=== PATIENT | female | born 1975 | race Caucasian/White ===

== ENCOUNTER 2020-10-04 09:57 | Day surgery (SDC) | payer OTHER, SELFPAY ==
[2020-09-26 14:12] VITALS: BMI 23.8
--- NOTE | 2020-10-04 10:31 | WPDANESEPPF ---
Anes - Initial Pre Proc Eval Procedure: Operation Date: 10/04/20 11:30 Proposed Procedures p Bilateral Breast Augmentation Mammoplasty - Jl Sullivan MD s Bilateral Breast Mastopexy - Jl Sullivan MD Date/Time: 10/04/20 10:31 Surgeon: Jl Sullivan MD Pre Op Diagnosis: Micromastia and Breast Laxity Patient Data Age: 45 Gender: F Height: 5 ft 2 in Weight: 59 kg Allergies Allergy/AdvReac Type Severity Reaction Status Date / Time sulfamethoxazole Allergy Unknown Rash Verified 10/01/20 14:14 [From ] trimethoprim [From ] Allergy Unknown Rash Verified 10/01/20 14:14 Home Medications Medication Instructions Recorded Confirmed Type multivitamin 1 tablet PO DAILY 08/29/20 09/26/20 History lactobacillus combination no.8 3,000 mmu cells PO DAILY 09/26/20 09/26/20 History [Adult Probiotic] carisoprodol 350 mg tablet 350 mg PO TID PRN #21 tablet 09/28/20 10/01/20 Rx docusate sodium 100 mg capsule 100 mg PO DAILY #14 cap 09/28/20 10/01/20 Rx ondansetron HCl 4 mg tablet 4 mg PO Q8H #28 tablet 09/28/20 10/01/20 Rx oxycodone-acetaminophen 5 mg-325 1 tablet PO Q6H PRN #15 tablet 09/28/20 10/01/20 Rx mg tablet Patient hx anesthesia problems: none Family hx anesthesia problems: none PMFSH Social History Social History Smoking status: Current some day smoker Tobacco type: e-cigarettes/vaping Alcohol intake: current Living arrangements: with family Gender identity (if verbalized by the patient): Female Spiritual care concerns: No Anes - Eval Final PreProcedure Day of Procedure 10/04/20 10:31 Patient weight: normal Heart: regular rate and rhythm Lungs: clear to auscultation Airway: Mallampati scale class II Neurological: alert and oriented Last oral intake: >/= 8 hours ASA classification: II Emergent: no Anesthetic plan: proceed Anesthesia type and monitoring: general LMA and standard monitoring Informed Consent: The patient's anesthetic plan and its attendant risks and benefits were discussed with the patient/family/POA. Questions were solicited and answers provided to the satisfaction of the patient/family/POA.
[2020-10-04] MEDS: SCOPOLAMINE 1.5 MG PATCH TRANSDERM (10:45)
[2020-10-04] MEDS: LACTATED RINGERS 1,000 ML 30 ML IV CONT ×2 (10:50→15:41)
[2020-10-04 10:57] VITALS: BMI 23.6
[2020-10-04 11:00] VITALS: BP 108/62; PULSE 80; RESP 20; TEMP 36.7; O2SAT 100
--- NOTE | 2020-10-04 12:37 | WPDHPUPDATE1 ---
History and Physical Update Update Date/Time: 10/04/20 12:37 History and Physical has been reviewed, including an updated exam of the patient. There are NO changes in the patient's condition. Risks, benefits, and alternatives have been discussed and questions answered. Patient agrees to proceed with procedure.
--- NOTE | 2020-10-04 13:11 | SUR.PREOP ---
Called significant other - Abel to give update on case delay.
[2020-10-04] MEDS: ceFAZolin 2 GM/D5W 50 ML 2 GM/50 ML BAG IVPB (13:16)
[2020-10-04] MEDS: LIDO 1%/EPINEPHRINE 1:100,000 20 ML VIAL 30 ML INFILTRATE (13:50)
--- NOTE | 2020-10-04 15:40 | PM.PROC ---
Procedure Note - Detailed Date of procedure: 10/04/20 Pre-op diagnosis: Micromastia and Breast Laxity Post-op diagnosis: same Procedure performed: Bilateral augmentation mastopexy Description of procedure: She is here today for bilateral breast augmentation mastopexy. Previously and again today the risks, benefits, alternatives were discussed in extensive detail. I wanted her to be very realistic about the risks involved as well as expectations. We discussed aftercare and what to monitor for. Made sure answered all of her questions to her satisfaction today and consent was obtained. Marked in the preoperative holding area with their verification. The patient was taken to the operating room placed supine on the operating table. Anesthesia was provided by anesthesiology. A surgical time-out was taken. We cleansed the skin and 1% lidocaine and 0.25% Marcaine with epinephrine was used anesthetize as a field block. She was prepped and draped in a standard sterile fashion. Tegaderm nipple Nicholson were placed. A 15 blade used to make an incision just superior to the inframammary fold. Dissection was continued until the chest wall as identified. I incised the pectoralis major along its inferior border and completely released the inferior border leaving the medial border intact. I created a subpectoral pocket in the appropriate dimensions based on our preoperative planning for the implant. I then copiously irrigated with saline solution and verified a strict hemostasis. Next the use a triple antibiotic and Betadine containing solution to irrigate the pocket. I washed my gloves with the triple antibiotic and Betadine solution. We washed the implant immediately upon opening it with this solution and only opened it when we needed it. I used implant funnel and no-touch technique. The implant was introduced into the pocket using the funnel. Having verified positioning of the implant this was closed using 2-0 Vicryl. I tailor tacked the breast into position and placed her in a sitting position. Verified our markings. Silvano the nipple-areolar complex based on preoperative markings, intraoperative measurements, and observations which were in full agreement. I marked this at 38 mm. Placed supine. I de-epithelialized a superior pedicle of the nipple-areolar complex. I also de-epithelialized inferior flap to cover under the T junction. I removed a central keel and inferior portion of the breast. Elevated medial and lateral breast flaps just was necessary for tension-free closure. I closed the vertical incision and IMF with 2-0 Vicryl. I placed 3-0 Monocryl around the areola and along the vertical. The was closed with 3-0 strata fix. I then ran a running subcuticular 4-0 tissue glue closure She was awoken taken to the PACU without difficulty. All instrument sponge counts were correct at the end of the case. Fluffs, Stanislaw wrap, and surgical bra were placed. Patient was awoke and taken to PACU without difficulty. All instrument sponge counts were correct at the end of the case. Anesthesia: GLMA Surgeon: Jl Sullivan MD Estimated blood loss (mL): 20 Drains: No Packing: No Pathology: none sent Complications: No immediate complications Condition: stable Disposition: PACU Findings: Superior pedicle Invert T Mastopexy Implants: Bilateral Inspira SoftTouch Silicone Breast Implants Right REF# [id number] SN [id number] Left REF# [id number] SN [id number]
[2020-10-04 15:41] VITALS: BP 131/76; PULSE 92; RESP 18; TEMP 37.1; O2SAT 100
[2020-10-04 15:56] VITALS: BP 130/73; PULSE 95; RESP 21; O2SAT 100
[2020-10-04 16:06] VITALS: BP 134/81; PULSE 103; RESP 19; O2SAT 98
--- NOTE | 2020-10-04 16:12 | WPDANESPN ---
Anes - Prog Note Post-Op Date/Time: 10/04/20 16:12 Cardiovascular status: normal Respiratory status: normal Airway patency: baseline Mental status: baseline Post-Op hydration status: normal Vital Signs: Last Vital Signs Temp 37.1 C 10/04/20 15:41 Pulse 103 H 10/04/20 16:06 Resp 19 10/04/20 16:06 BP 134/81 10/04/20 16:06 Pulse Ox 98 10/04/20 16:06 Pain Score (VAS): 0 I/O: Intake & Output 10/04/20 10/04/20 10/04/20 07:59 15:59 23:59 Intake Total 50 Balance 50 Post-procedural complaints: none Patient Feedback: Patient satisfied with anesthetic care.
[2020-10-04] MEDS: oxyCODONE HCL (*CRX) 5 MG TAB IR PO (16:25)
[2020-10-04 16:26] VITALS: BP 135/80; PULSE 98; RESP 20; O2SAT 98
[2020-10-04 16:52] VITALS: BP 133/71; PULSE 87; RESP 20; O2SAT 99
== END 2020-10-04 17:00 | disposition home or self-care (01) ==
PROVIDERS: Visit Provider Surgery Plastic and Reconstructive Surgery
PROC: (CPT 19325; principal; 2020-10-04 11:30)
PROC: (CPT 19316; 2020-10-04 11:30)
DX: N64.82 Hypoplasia of breast (principal); N64.9 Disorder of breast, unspecified
CPT/HCPCS: 19325; 19316